=== PATIENT | male | born 1970 | race Caucasian/White ===

== ENCOUNTER 2021-11-18 06:04 | Day surgery (SDC) | payer OTHER ==
[2021-11-16 10:51] LABS: COVID AG,FIA SOURCE NASOPHARYNGEAL
[~2021-11-18] VITALS: Ht 175.3 cm; Wt 93.2 kg
[~2021-11-18 06:04] MED LIST: SODIUM CHLORIDE 0.9% 1,000 ML IV ONE
[2021-11-18] MEDS ORDERED: BENZOCAINE 20% 50 MCG/SPRAY 57 GM TP ONE (06:05)
[2021-11-18] MEDS ORDERED: LIDOCAINE 2% 5 ML JELLY TP ONE (06:05)
[2021-11-18] MEDS ORDERED: LIDOCAINE 4% 50 ML SOLUTION TP ONE (06:05)
[2021-11-18] MEDS ORDERED: BECL10.6 IH (06:50)
[2021-11-18] MEDS ORDERED: MONT-35 PO (06:50)
[2021-11-18] MEDS ORDERED: ALBU8HFA IH (06:50)
[2021-11-18] MEDS ORDERED: SODIUM CHLORIDE 0.9% 1,000 ML ONE (06:52)
[2021-11-18] MEDS ORDERED: MIDAZOLAM HCL 5 MG/ML VIAL ONE (07:24)
[2021-11-18] MEDS ORDERED: FentaNYL CITRATE PF 100 MCG/2 ML VIAL ONE (07:24)
[2021-11-18] MEDS ORDERED: SODIUM CHLORIDE 0.9% 10 ML ONE (08:22)
[2021-11-18] MEDS ORDERED: MethylPREDNISolone SOD SUCC 125 MG/2 ML VIAL IVP ONE (09:15)
[2021-11-18] MEDS ORDERED: MethylPREDNISolone SOD SUCC 125 MG/2 ML VIAL ONE (09:23)
[2021-11-18] MEDS ORDERED: OXYGEN THERAPY IH SCH (20:00)
== END 2021-11-18 11:15 | disposition home or self-care (01) ==
LOC: SURGERY 06:04
PROVIDERS: ATTEND Internal Medicine Critical Care Medicine
DX: J38.4 Edema of larynx (principal); B37.0 Candidal stomatitis; Z91.040 Latex allergy status; Z79.899 Other long term (current) drug therapy
CPT/HCPCS: 31623; 31624; 71045; 87015; 87070; 87101; 87206; 87220; 87426; 88108; 88184; 88185; 88305; C9803; J2250; J2930; J3010; J7030; Z7610